=== PATIENT | male | born 1980 | race Two or more races ===

== ENCOUNTER 2018-08-02 12:12 | Emergency (ER) | payer MEDICAID ==
[~2018-08-02] VITALS: Ht 165.1 cm; Wt 75.0 kg
[2018-08-02] MEDS ORDERED: SODIUM CHLORIDE 0.9% 1,000 ML IV ONE (12:50)
[2018-08-02] MEDS ORDERED: LORAZEPAM 1MG TABLET PO ONE (13:00)
[2018-08-02 14:30] LABS: BASOPHILS % 0.3 % (0.0-2.0); EOSINOPHILS % 0.5 % (0.0-5.0); HEMATOCRIT. 44.8 % (42.0-52.0); HEMOGLOBIN. 15.3 g/dL (14.0-18.0); LYMPHOCYTES % 16.8 % (20.0-50.0); MEAN CORPUSCULAR HEMOGLOBIN 29.9 pg (28.0-32.0); MEAN CORPUSCULAR VOLUME 87.5 fL (80.0-94.0); MEAN PLATELET VOLUME 9.3 fl (7.4-10.4); NEUTROPHILS % 78.4 % (40.0-76.0); PLATELET 314 x1000/uL (130-400); RED BLOOD CELL COUNT 5.12 mill/uL (4.7-6.1); RED CELL DISTRIBUTION WIDTH 13.4 % (11.6-14.6)
[2018-08-02 14:34] LABS: CHLORIDE 109 mEq/L (98-107)
[2018-08-02 14:39] LABS: ETHANOL BLOOD < 10 mg/dL
[2018-08-02 15:46] LABS: CLARITY URINE CLEAR (CLEAR); COLOR URINE YELLOW (YELLOW); KETONES URINE NEGATIVE (NEGATIVE); LEUKOCYTE ESTERASE URINE NEGATIVE (NEGATIVE); NITRITE URINE NEGATIVE (NEGATIVE); OCCULT BLOOD URINE NEGATIVE (NEGATIVE); PROTEIN URINE NEGATIVE (NEGATIVE); SPECIFIC GRAVITY URINE 1.001 (1.005-1.030); UROBILINOGEN URINE 0.2 E.U./dL (0.2-1.0)
[2018-08-02 15:55] LABS: *AMPHETAMINES SCREEN URINE NEGATIVE (NEGATIVE); *BARBITURATES SCREEN URINE NEGATIVE (NEGATIVE); *BENZODIAZEPINES SCREEN URINE NEGATIVE (NEGATIVE); *COCAINE SCREEN URINE NEGATIVE (NEGATIVE)
[2018-08-02 15:56] LABS: CANNABINOID URINE SCREEN NEGATIVE (NEGATIVE); METHADONE URINE SCREEN NEGATIVE (NEGATIVE); OPIATES URINE SCREEN NEGATIVE (NEGATIVE); PHENCYCLIDINE URINE SCREEN NEGATIVE (NEGATIVE)
[2018-08-02 16:51] VITALS: BP 135/91
== END 2018-08-02 17:05 | disposition home or self-care (01) ==
LOC: ER 12:12
DX: F41.9 Anxiety disorder, unspecified (principal); F20.9 Schizophrenia, unspecified
CPT/HCPCS: 36415; 80053; 80305; 81003; 85025; 87186; 93005; 99284; J7030